=== PATIENT | male | born 1975 | race Caucasian/White ===

== ENCOUNTER 2024-09-01 02:58 | Emergency (ER) | payer MEDICAID ==
[~2024-09-01] VITALS: Ht 167.6 cm; Wt 59.7 kg
[2024-09-01 03:40] LABS: BASOPHILS # (AUTO) 0.2 X10'3 (0-0.2); BASOPHILS % (AUTO) 1.4 % (0-1); BILIRUBIN,URINE NEGATIVE (Neg); CLARITY,URINE CLEAR (Clear); COLOR,URINE YELLOW (Yellow); EOSINOPHILS # (AUTO) 0.2 X10'3 (0-0.9); GLUCOSE, URINE NEGATIVE (Neg); HEMOGLOBIN 15.3 g/dl (14.0-17.9); KETONES,URINE NEGATIVE (Neg); LEUKOCYTE ESTERASE ,URINE NEGATIVE (Neg); LYMPHOCYTES # (AUTO) 2.7 X10'3 (1.1-4.8); LYMPHOCYTES % (AUTO) 22.6 % (21-51); MEAN CORPUSCULAR HEMOGLOBIN 30.4 PG (27.0-31.0); MEAN CORPUSCULAR HGB CONC 33.3 g/dL (33.0-36.5); MEAN CORPUSCULAR VOLUME 91.5 FL (78-98); MEAN PLATELET VOLUME 7.6 FL (7.4-10.4); MONOCYTES # (AUTO) 0.9 X10'3 (0-0.9); MONOCYTES % (AUTO) 7.1 % (2-12); NEUTROPHILS % (AUTO) 66.9 % (42-75); NITRITES, URINE NEGATIVE (Neg); OCCULT BLOOD,URINE LARGE (Neg); PLATELET COUNT 324 X10'3 (140-440); PROTEIN,URINE 30 mg/dl (Neg); RED BLOOD COUNT 5.03 X10'6 (4.70-6.10); RED CELL DISTRIBUTION WIDTH 14.1 % (11.5-14.5)
[2024-09-01 03:46] LABS: UA COLLECTION TYPE URINAL
[2024-09-01 03:47] LABS: WBC,URINE 0-4 /HPF (0-4)
[2024-09-01 03:48] LABS: BACTERIA,URINE FEW /HPF (Neg); RBC,URINE TNTC /HPF (0-2); SQUAMOUS EPITHELIAL CELL,UR NONE SEEN /LPF (FEW)
[2024-09-01 03:56] LABS: ALANINE AMINOTRANSFERASE 28 U/L (12-78); ALBUMIN 4.1 G/DL (3.4-5.0); ALBUMIN/GLOBULIN RATIO 1.2 (1.1-1.5); ALKALINE PHOSPHATASE 86 IU/L (46-116); ANION GAP 12 (8-16); ASPARTATE AMINO TRANSFERASE 25 U/L (10-37); BILIRUBIN,TOTAL 0.4 MG/DL (0.1-1.0); BLOOD UREA NITROGEN 14 MG/DL (7-18); BUN/CREATININE RATIO 11.1 (10.0-20.0); CALCIUM 9.1 MG/DL (8.5-10.1); CHLORIDE 104 MMOL/L (99-107); CREATININE 1.26 MG/DL (0.60-1.10); GLUCOSE 126 MG/DL (70-104); LIPASE 20 U/L (16-77); MAGNESIUM 1.9 MG/DL (1.5-2.4); POTASSIUM 3.6 MMOL/L (3.5-5.1); SODIUM 142 MMOL/L (135-145); TOTAL CARBON DIOXIDE 25.7 MMOL/L (24-32); TOTAL PROTEIN 7.6 G/DL (6.4-8.2); eCRCL 61 ML/MIN; eGFR 61 ML/MIN
[2024-09-01] MEDS ORDERED: iohexol 300mg/ml 100ml inj. ONE (04:00)
--- NOTE | 2024-09-01 04:57 | RADIOLOGY REPORT ---
Exam: CT CT ABDOMEN PELVIS W/ IV CONTRAST History: LLQ pain COMPARISON: None Technique: Multidetector spiral CT of the abdomen and pelvis was performed from lung bases to pubic s ymphysis. Intravenous contrast was administered during this examination. Portal venous imaging was o btained. Axial, coronal and sagittal multiplanar reformats were performed by the technologist on a [employer] workstation. Radiation Dose : 1. Abdomen/Pelvis: CTDIvol 6.2 mGy, DLP 296 mGy*cm. Findings: Lung Bases: No acute or significant lung base finding. Normal heart size. No pleural or pericardial effusion. Liver: The liver is normal in size. No focal lesions. Normal hepatic vascular enhancement. Gallbladder and Biliary Tree: Unremarkable Spleen: Unremarkable Pancreas: The pancreas is normal in appearance without focal lesions or abnormal enhancement. Adrenal Glands: Unremarkable Kidneys: Mild left hydroureteronephrosis with obstructing 0.2 cm stone at the distal left ureter. R ight kidney is unremarkable. Bladder: Unremarkable Bowel: The stomach is grossly normal in appearance. Small bowel and colon are normal in caliber and d istribution. The appendix is not visualized; however, no secondary findings of acute appendicitis marnie ntified. Ascites: Absent Lymphadenopathy: No mesenteric, retroperitoneal or periportal lymphadenopathy. Abdominal Wall and Mesentery: Unremarkable. Vasculature: The visualized abdominal aorta is normal in size and caliber. Abdominal and pelvic vess els demonstrate normal enhancement. Pelvic Organs: Unremarkable Musculoskeletal: No aggressive focal bony lesions, acute fractures or dislocation. IMPRESSION: Mild left hydroureteronephrosis with obstructing 0.2 cm distal ureteral stone. Otherwise, no acute abdominal or pelvic findings. Radiation optimization: All CT scans at this facility use at least one of these dose optimization dakotah hniques: automated exposure control mA and/or kV adjustment per patient size (includes targeted exam s where dose is matched to clinical indication) or iterative reconstruction.
--- NOTE | 2024-09-01 05:24 | Physician Documentation ---
History of Present Illness Chief Complaint: Abdominal Pain Stated Complaint: ABDOMINAL PAIN Time Seen by MD: 03:25 Mode of Arrival: EMS, Ambulatory HPI 49-year-old gentleman with a known history of methamphetamine abuse presents for evaluation the left flank/left lower quadrant abdominal pain that began approximately 1 hour prior to arrival radiating to his left testicle. He reports hematuria and difficulty urinating. No particular palliating or aggravating factors. The pain is severe in its intensity. Did not attempt to treat it. This never happened in the past. No prior history of kidney stones. He also states that he is worried that he has been poison because somebody may have put borax into his methamphetamines. He does not know why would somebody do such an abomination, however he smoked a and now he feels poison. Denies chest pain, difficulty breathing, fever, chills, nausea, vomiting, diarrhea. Medication Reconciliation Allergies: Coded Allergies: No Known Allergies (Unverified , 09/01/24) Review of Systems ROS 10 point review of systems was performed and unless noted above in HPI is negative for acute process/complaint. Physical Exam Vital Signs: Temperature: 97.6, Source: Oral, Heart Rate: 87, Respiratory Rate: 18, BP: 135/87, Pulse Oximetry: 100, Weight: 59.700 Physical Exam Physical examination: GENERAL: Awake, alert, oriented, GCS 15, no apparent distress, non-toxic appearing, answers questions, follows commands appropriately. HEENT: Atraumatic, normocephalic, pupils equal, extraocular muscles intact Active gross movements, sclerae anicteric, mucus membranes moist, no stridor. NECK: Midline, no JVD CARDIOVASCULAR: Good skin perfusion without evidence of pallor, mottling. PULMONARY: Nonlabored, symmetric chest rise, no audible wheezing, no accessory muscle use, no respiratory distress, speaking in full sentences. GASTROINTESTINAL: Not distended. NEUROLOGIC: Lucid with normal mental status. Normal facial symmetry. Moves all extremities symmetrically and with purpose. No truncal ataxia. Speech is fluid without evidence of dysarthria or aphasia, no focal deficits appreciated. EXTREMITIES: Acute deformities Skin: warm, dry PSYCHIATRIC: Normal affect, normal insight, normal concentration. Focused exam: [] Progress Results/Orders Results/Orders Orders - MIKE LOUIE DO Straight Cath For Urine Sample (09/01/24 03:12) Monitor (09/01/24 03:25) Ct Abdomen Pelvis (09/01/24 04:00) Completed Orders - MIKE LOUIE DO Cbc/Diff (09/01/24 03:12) BMP (09/01/24 03:12) Lipase (09/01/24 03:12) CMP (09/01/24 03:12) MG (09/01/24 03:25) Ct Abdomen Pelvis (09/01/24 04:00) Ua W/Microscopic, Cult If Ind (09/01/24 03:31) Iohexol 300mg/Ml 100ml Inj. (Omnipaque-3 (09/01/24 04:00) Vital Signs 09/01/24 09/01/24 03:01 03:09 Temp 97.6 Pulse 87 Resp 18 18 B/P (MAP) 135/87 Pulse Ox 100 Laboratory Tests Test 09/01/24 03:31 White Blood Count 12.0 H Red Blood Count 5.03 Hemoglobin 15.3 Hematocrit 46.0 Mean Corpuscular Volume 91.5 Mean Corpuscular Hemoglobin 30.4 Mean Corpuscular Hemoglobin Concent 33.3 Red Cell Distribution Width 14.1 Platelet Count 324 Mean Platelet Volume 7.6 Neutrophils (%) (Auto) 66.9 Lymphocytes (%) (Auto) 22.6 Monocytes (%) (Auto) 7.1 Eosinophils (%) (Auto) 2.0 Basophils (%) (Auto) 1.4 H Neutrophils # (Auto) 8.0 H Lymphocytes # (Auto) 2.7 Monocytes # (Auto) 0.9 Eosinophils # (Auto) 0.2 Basophils # (Auto) 0.2 CBC Comment Urine Specimen Description Urinal Urine Color Yellow Urine Clarity Clear Urine pH 7.0 Urine Specific [place] 1.015 Urine Protein 30 H Urine Glucose (UA) Negative Urine Ketones Negative Urine Occult Blood Large H Urine Nitrite Negative Urine Bilirubin Negative Urine Urobilinogen 1.0 Urine Leukocyte Esterase Negative Urine RBC Tntc Urine WBC 0-4 Urine Squamous Epithelial Cells None seen Urine Bacteria Few Urine Culture Indicated Not ind Volume Urine Centrifuged 10 ml Urine Comment Sodium Level 142 Potassium Level 3.6 Chloride Level 104 Carbon Dioxide Level 25.7 Anion Gap 12 Blood Urea Nitrogen 14 Creatinine 1.26 H Estimated GFR/1.73 m2 61 BUN/Creatinine Ratio 11.1 Glucose Level 126 H Calcium Level 9.1 Magnesium Level 1.9 Total Bilirubin 0.4 Aspartate Amino Transf (AST/SGOT) 25 Alanine Aminotransferase (ALT/SGPT) 28 Alkaline Phosphatase 86 Total Protein 7.6 Albumin 4.1 Globulin 3.5 Albumin/Globulin Ratio 1.2 Lipase 20 Chemistry Comments Medical Decision Making Findings Facility Status: ED Holds, RME process The plan was discussed with the patient, who demonstrates clear understanding of the plan and is in agreement with the plan unless otherwise noted in the chart. All questions have been answered, all concerns were addressed unless otherwise documented. I was available throughout their ED stay for frequent reassessment and questions. Differential Diagnoses (considered and possible or likely): [Differential diagnosis considered includes pyelonephritis, kidney stone, acute appendicitis, acute cholecystitis, pancreatitis, gastritis, PUD, diverticulitis, mesenteric ischemia, abdominal aortic aneurysm, bowel obstruction, enteritis, colitis, fecal impaction, volvulus, IBS, inflammatory bowel disease, specific food i ntolerance, peritonitis, perforated viscous, malignancy, UTI, abscess, and abdominal pain NOS. History, physical exam, and workup exclude many of the more serious causes listed above. ] ??Differential Diagnoses (considered and unlikely, not requiring evaluation currently): [See above] MDM Data Please see HPI for the following: Independent Historians and external Records Review. Historian: [Patient] Independent Historians: ?[None, patient has no records] Medication Management: [Reviewed medication list] Social History and determinants: [Reviewed] Please see the body of the note for the following: Any independent interpretations of ECG, imaging studies. All vitals signs/haemodynamics, ordered tests were independently reviewed and interpreted by myself. Nursing triage complaint and vitals reviewed, additional nursing notes were reviewed as available and I agree unless otherwise noted or documented in contradiction in the chart Vital Signs: Independently reviewed Labs: Independently interpreted Imaging: Independently interpreted Old Medical Records: Independently reviewed, see HPI for relevant summary and information Pulse Oximetry: [95%] interpreted as [normal on room air] by me Additionally notably showing: [Hemodynamically stable. Laboratory workup notable for hematuria, unremarkable hematologic workup with normal renal function. Advanced imaging on my independent interpretation shows tiny stone in the distal left ureter with mild hydronephrosis. Radiology read confirms 0.2 cm stone. I] Tests considered but not ordered include: [Ultrasound has been considerably does not appear to be necessary] Social Determinants of Health Impact: Patient was evaluated in [facility], or [facility] [place] access to healthcare due to below par ratio of patient to medical providers. [] Comorbid Conditions Impacting Present Evaluation and Care/Treatment: [Methamphetamine abuse] Management Discussions with other Healthcare Providers: [None] Treatment and Disposition Medication Management (Given or considered): [Pain management]. See EMR for details Consideration for Hospitalization/Escalation/Deescalation of Care: Admission for observation has been considered, [however the patient is able to tolerate p.o., their symptoms are controlled, they are able to rely on oral medications, and their chief complaint/diagnosis can be managed on outpatient basis.] ?ED Course:?[No clinical deterioration] ?Shared decision making:?[Patient is hemodynamically stable for discharge home with follow with their primary care provider. [ ] Specific and cautious return precautions provided and discussed with full understanding. Any incidental findings were also discussed and follow up recommendations given. [] All questions answered. Patient/family were able to verbalize back return precautions. Patient/family agree to plan. Copies of imaging and laboratory studies were provided.] Code status:?FULL Please see the full Electronic Medical Record for full details of nursing documentation, medications list, other records of complete past medical history and conditions, vital signs, laboratory studies, and any radiologic study interpretations by radiologists. Portions of this note were completed using [employer] dictation software and as a result there may exist minor errors in spelling. I have reviewed elements of past family and social history and agree as included in note. Departure Disposition: 01 HOME / SELF CARE / HOMELESS Impression: Primary Impression: Renal colic on left side Condition: Improved Discharge Instructions: Kidney Stones Referrals: NO PRIMARY CARE PROVIDER (PCP) Education Educated: Patient Educated regarding: diagnosis, treatment, prognosis Signature Scribe Signature: No scribe Attestation: This note accurately reflects clinical decisions, work performed by myself, DO JACY Simmons NICHOLAS M DO Sep 01, 2024 05:24
[2024-09-01] MEDS: HYDROcodone/acetaminophen 5mg/325mg tablet PO ONE (05:38)
[2024-09-01 05:46] VITALS: BP 149/94; PULSE 86; RESP 18; TEMP 97.6; O2SAT 100
== END 2024-09-01 05:48 | disposition home or self-care (01) ==
LOC: ER 02:58
DX: N23 Unspecified renal colic (principal); F17.200 Nicotine dependence, unspecified, uncomplicated
CPT/HCPCS: 36415; 74177; 80053; 81001; 83690; 83735; 85025; 99285; Q9967; 99284

== ENCOUNTER 2024-09-03 15:26 | Emergency (ER) | payer MEDICAID ==
[~2024-09-03] VITALS: Ht 180.3 cm; Wt 65.0 kg
[2024-09-03 15:32] VITALS: TEMP 99.1
[2024-09-03 16:09] LABS: BASOPHILS # (AUTO) 0.1 X10'3 (0-0.2); BASOPHILS % (AUTO) 0.6 % (0-1); EOSINOPHILS % (AUTO) 0.1 % (0-6); HEMATOCRIT 41.6 % (42.0-52.0); HEMOGLOBIN 14.2 g/dl (14.0-17.9); LYMPHOCYTES # (AUTO) 1.2 X10'3 (1.1-4.8); MEAN CORPUSCULAR HEMOGLOBIN 30.7 PG (27.0-31.0); MEAN CORPUSCULAR HGB CONC 34.2 g/dL (33.0-36.5); MEAN CORPUSCULAR VOLUME 89.8 FL (78-98); MEAN PLATELET VOLUME 7.4 FL (7.4-10.4); MONOCYTES % (AUTO) 7.2 % (2-12); NEUTROPHILS # (AUTO) 11.3 X10'3 (1.8-7.7); NEUTROPHILS % (AUTO) 83.1 % (42-75); PLATELET COUNT 284 X10'3 (140-440); RED BLOOD COUNT 4.63 X10'6 (4.70-6.10); RED CELL DISTRIBUTION WIDTH 14.1 % (11.5-14.5); WHITE BLOOD COUNT 13.6 X10'3 (4.5-11.0)
--- NOTE | 2024-09-03 16:19 | Physician Documentation ---
History of Present Illness Chief Complaint: Abdominal Pain Stated Complaint: ABD PAIN Time Seen by MD: 16:01 HPI Patient is seen today with complaints of left lower quadrant abdominal pain that became severe today. Patient denies any changes in bowel or bladder habits. Patient does admit to illicit drug use including methamphetamines. Patient denies any chest pain or shortness of breath or abdominal pain or nausea, vomiting, diarrhea. Patient denies any blood in stool or urine. He denies any constipation. He states he has previously had kidney stones. He has no other concern or complaint at this time. Medication Reconciliation Allergies: Coded Allergies: No Known Allergies (Unverified , 09/03/24) Review of Systems Constitutional: Denies: chills, fever, weakness Eyes: Denies: pain, blurred vision ENT: Denies: ear pain, nose pain, throat pain, mouth pain Respiratory: Denies: cough, shortness of breath Cardiovascular: Denies: chest pain, palpitations Gastrointestinal: Denies: abdominal pain, nausea, vomiting Genitourinary: Denies: burning, dysuria Male Genitalia: Denies: penile discharge, testicular pain Neurological: Denies: headache, dizziness Musculoskeletal: Denies: pain, swelling Integumentary: Denies: rash, lesions Allergic/Immunologic: Denies: hives, itching Hematologic/Lymphatic: Denies: no symptoms reported Psychiatric: Denies: depression, anxiety Physical Exam Vital Signs: Temperature: 99.1, Source: Oral, Heart Rate: 82, Respiratory Rate: 19, BP: 144/84, Pulse Oximetry: 100, Weight: 65.000 Physical Exam General: Awake and Alert, no acute distress. HEENT: Patient has very poor dentition with multiple caries and dental fractures. Conjunctiva pink, Sclera clear, Mucus Membranes moist. Neck: Supple without masses and tenderness. Resp: Unlabored. Lungs clear to auscultation bilaterally. Heart: Regular Rate and rhythm, normal S1 and S2 without murmur, rub or gallop. Abdomen: Patient on exam does have some tenderness to palpation in the left lower quadrant that seems out of proportion to exam. There is no rebound tend erness. There is guarding. Patient has no CVA tenderness. Extremities: No cyanosis,clubbing or edema. Skin: Warm and Dry. Progress Results/Orders Results/Orders Vital Signs 09/03/24 15:32 Temp 99.1 Pulse 82 Resp 19 B/P (MAP) 144/84 Pulse Ox 100 Laboratory Tests Test 09/03/24 15:43 09/03/24 15:58 Urine Comment White Blood Count 13.6 H Red Blood Count 4.63 L Hemoglobin 14.2 Hematocrit 41.6 L Mean Corpuscular Volume 89.8 Mean Corpuscular Hemoglobin 30.7 Mean Corpuscular Hemoglobin Concent 34.2 Red Cell Distribution Width 14.1 Platelet Count 284 Mean Platelet Volume 7.4 Neutrophils (%) (Auto) 83.1 H Lymphocytes (%) (Auto) 9.0 L Monocytes (%) (Auto) 7.2 Eosinophils (%) (Auto) 0.1 Basophils (%) (Auto) 0.6 Neutrophils # (Auto) 11.3 H Lymphocytes # (Auto) 1.2 Monocytes # (Auto) 1.0 H Eosinophils # (Auto) 0.0 Basophils # (Auto) 0.1 CBC Comment Chemistry Comments Medical Decision Making Findings Patient is seen today with complaints of left lower quadrant abdominal pain that became severe today. Patient denies any changes in bowel or bladder habits. Patient does admit to illicit drug use including methamphetamines. Patient denies any chest pain or shortness of breath or abdominal pain or nausea, vomiting, diarrhea. Patient denies any blood in stool or urine. He denies any constipation. He states he has previously had kidney stones. He has no other concern or complaint at this time. Patient was given L of fluid, 30 mg Toradol IV, 1000 mg Tylenol IV and patient's pain has improved significantly. CT scan of abdomen showed no acute findings and was largely unremarkable. Patient will follow up with primary care in 2-5 days if no better as needed sooner. Return to ED with any worsening, concerning or changing symptoms. Prescription of ibuprofen and Tylenol sent to patient's pharmacy to be taken as prescribed. Departure Disposition: HOME / SELF CARE / HOMELESS Impression: Primary Impression: Abdominal pain Qualified Codes: R10.32 - Left lower quadrant pain Condition: Improved Discharge Instructions: Abdominal Pain (Nonspecific) Additional Instructions: Patient was given L of fluid, 30 mg Toradol IV, 1000 mg Tylenol IV and patient's pain has improved significantly. CT scan of abdomen showed no acute findings and was largely unremarkable. Patient will follow up with primary care in 2-5 days if no better as needed sooner. Return to ED with any worsening, concerning or changing symptoms. Prescription of ibuprofen and Tylenol sent to patient's pharmacy to be taken as prescribed. Referrals: NO PRIMARY CARE PROVIDER (PCP) Prescriptions Acetaminophen (Tylenol Extra Strength) 500 Mg Tablet 2 TAB PO Q6H PRN PRN for pain or fever for 7 Days, #56 TAB Prov: KWAKU MAJOR 09/03/24 Ibuprofen (Ibuprofen) 800 Mg Tablet 1 TAB PO Q8H for pain for 10 Days, #30 TAB 0 Refills Prov: KWAKU MAJOR 09/03/24 Signature Scribe Signature: No scribe Attestation: No scribe KWAKU MAJOR Sep 03, 2024 16:19
[2024-09-03 16:25] LABS: BILIRUBIN,URINE NEGATIVE (Neg); CLARITY,URINE CLEAR (Clear); COLOR,URINE YELLOW (Yellow); GLUCOSE, URINE NEGATIVE (Neg); KETONES,URINE NEGATIVE (Neg); LEUKOCYTE ESTERASE ,URINE NEGATIVE (Neg); NITRITES, URINE NEGATIVE (Neg); OCCULT BLOOD,URINE NEGATIVE (Neg); PH,URINE 8.5 (4.8-8.0); PROTEIN,URINE TRACE mg/dl (Neg); UROBILINOGEN,URINE 0.2 E.U/dL (0.2-1.0)
[2024-09-03 16:26] LABS: UA COLLECTION TYPE NON-SPECIFIED
[2024-09-03 16:27] LABS: BACTERIA,URINE FEW /HPF (Neg); MUCUS STRANDS FEW /LPF (Neg); RBC,URINE 0-2 /HPF (0-2); SQUAMOUS EPITHELIAL CELL,UR FEW /LPF (FEW); WBC,URINE 0-4 /HPF (0-4)
[2024-09-03 16:28] LABS: AMORPHOUS PHOSPHATES 1+
[2024-09-03 16:38] LABS: ALANINE AMINOTRANSFERASE 28 U/L (12-78); ALBUMIN 3.7 G/DL (3.4-5.0); ALBUMIN/GLOBULIN RATIO 1.2 (1.1-1.5); ALKALINE PHOSPHATASE 75 IU/L (46-116); ANION GAP 15 (8-16); ASPARTATE AMINO TRANSFERASE 20 U/L (10-37); BILIRUBIN,TOTAL 0.5 MG/DL (0.1-1.0); BLOOD UREA NITROGEN 11 MG/DL (7-18); BUN/CREATININE RATIO 8.6 (10.0-20.0); CALCIUM 9.1 MG/DL (8.5-10.1); CHLORIDE 101 MMOL/L (99-107); CREATININE 1.28 MG/DL (0.60-1.10); GLUCOSE 113 MG/DL (70-104); LIPASE 18 U/L (16-77); POTASSIUM 3.9 MMOL/L (3.5-5.1); SODIUM 140 MMOL/L (135-145); TOTAL CARBON DIOXIDE 23.9 MMOL/L (24-32); TOTAL PROTEIN 6.7 G/DL (6.4-8.2); eCRCL 65 ML/MIN; eGFR 60 ML/MIN
[2024-09-03] MEDS: ketorolac trometh 30MG/ML vial 30 MG/ML VIAL IV STA (16:54)
[2024-09-03] MEDS: acetaminophen 1,000mg/100ml IV 100 ML IV STA (16:55)
[2024-09-03] MEDS ORDERED: iohexol 300mg/ml 100ml inj. ONE (17:24)
--- NOTE | 2024-09-03 18:46 | RADIOLOGY REPORT ---
Exam: CT CT ABDOMEN PELVIS W/ IV CONTRAST History: abd pain Comparison Study: CT CT ABDOMEN PELVIS W/ IV CONTRAST on DOS: 09/01/24 TECHNIQUE: A digital yard foreman image was obtained. During the uneventful, intravenous administration of c ontrast material, multislice data acquisition was obtained through the abdomen and pelvis. The data s et was subsequently reconstructed into axial images. Images reviewed on a wrist examination is an exa mination of axial and multiplanar reformations using a variety of window levels and settings. RADIATION DOSE: DLP 310.11 mGy.cm; CTDI vol 6.3 mGy. Findings: Lungs: The lung bases are clear. Heart: No cardiomegaly or pericardial effusion. Liver: Unremarkable. Gallbladder: Unremarkable. Spleen: Unremarkable Pancreas: Unremarkable Adrenals: Unremarkable Kidneys: Unremarkable GI tract: Mild wall thickening of the small bowel. Normal appendix. : Unremarkable. Vasculature: Mild aortoiliac atherosclerosis. Lymphadenopathy: Absent Peritoneum: No ascites Musculoskeletal: Unremarkable Soft tissues: Small fat containing left inguinal hernia. Impression: 1. No acute abdominopelvic abnormalities. 2. Mild small bowel wall thickening. Correlate for enteritis.
[2024-09-03] MEDS: normal saline 1000ml 1,000 ML IV STA (19:13)
[2024-09-03] MEDS ORDERED: IBUP-1986 PO (19:25)
[2024-09-03] MEDS ORDERED: ACET-1025 PO (19:25)
[2024-09-03 19:42] VITALS: BP 144/84; PULSE 83; RESP 14; O2SAT 99
[2024-09-04] MEDS ORDERED: ONDA-243 PO (14:17)
[2024-09-04] MEDS ORDERED: AMOX-117 PO (14:17)
== END 2024-09-03 19:49 | disposition home or self-care (01) ==
LOC: ER 15:26
DX: R10.32 Left lower quadrant pain (principal)
CPT/HCPCS: 36415; 74177; 80053; 81001; 83605; 83690; 84145; 85025; 96361; 96374; 96375; 99285; J0131; J1885; J7030; Q9967

== ENCOUNTER 2024-09-04 13:26 | Emergency (ER) | payer MEDICAID, OTHER ==
[~2024-09-04] VITALS: Ht 175.3 cm; Wt 65.9 kg
[~2024-09-04 13:26] MED LIST: ACET-1025 PO; IBUP-1986 PO
--- NOTE | 2024-09-04 14:15 | Physician Documentation ---
History of Present Illness Chief Complaint: Abdominal Pain Stated Complaint: ABD PAIN Time Seen by MD: 14:07 Source: EMS Mode of Arrival: EMS Exam Limitations: no limitations HPI 49-year-old male brought in by EMS for continuation of abdominal pain x3 days has been into the ER. Patient still complaining of left lower quadrant pain at times radiating to the back. Patient states he has approximately one-week sober from methamphetamine. Patient states he has mild nausea no vomiting. Patient denies any constipation or diarrhea. Medication Reconciliation Allergies: Coded Allergies: No Known Allergies (Unverified , 09/04/24) Scheduled Amox Tr/Potassium Clavulanate (Augmentin 875-125 Tablet), 1 TAB PO Q12H Ibuprofen (Ibuprofen), 1 TAB PO Q8H Scheduled PRN Acetaminophen (Tylenol Extra Strength), 2 TAB PO Q6H PRN PRN for pain or fever ONDANSETRON ODT 4mg tablet (Ondansetron Odt), 1 TABLET PO Q6H PRN for nausea/vomiting Review of Systems All Other Systems at this time: Reviewed and Negative Gastrointestinal: Reports: see HPI Physical Exam Vital Signs: Temperature: 98.5, Source: Temporal, Heart Rate: 74, Respiratory Rate: 16, BP: 147/81, Pulse Oximetry: 100, Weight: 65.910 Oxygen Flow Rate: 0 General Appearance: WD/WN, no apparent distress Respiratory: lungs clear, no respiratory distress Chest: no accessory muscle use, chest non-tender Cardiovascular: regular rate, rhythm, no edema Gastrointestinal Left lower quadrant tenderness normal bowel sounds no distention no flank pain Neurologic: oriented x4 Psychiatric: anxiety Progress Results/Orders Results/Orders Vital Signs 09/04/24 14:02 Temp 98.5 Pulse 74 Resp 16 B/P (MAP) 147/81 Pulse Ox 100 O2 Flow Rate 0 Medical Decision Making Findings Discussed CT findings from previous ER visit with enteritis CT discussed colitis, gastroenteritis, diverticulitis as differentials. Mild nausea without vomiting discussed soft diet. Departure Time of Disposition: 14:15 Disposition: 01 HOME / SELF CARE / HOMELESS Impression: Primary Impression: Acute gastritis Additional Impressions: Nausea Amphetamine abuse Condition: Stable Discharge Instructions: Gastritis, Adult Additional Instructions: Rest and stay well hydrated. Take antibiotics as prescribed. Use Zofran as needed for nausea. Departure Forms: Excuse form Work or School Excused From: Work, Physical Activity Excuse beginning now through the following date: Sep 07, 2024 May Return but still avoid physical Activity from now until: Sep 07, 2024 Referrals: NO PRIMARY CARE PROVIDER (PCP) Prescriptions Amox Tr/Potassium Clavulanate (Augmentin 875-125 Tablet) 1 Each Tablet 1 TAB PO Q12H for 7 Days, #14 TAB Prov: CASIE WHEATLEY NP 09/04/24 ONDANSETRON ODT 4mg tablet (ONDANSETRON ODT) 4 Mg Tab.rapdis 1 TABLET PO Q6H PRN for nausea/vomiting, #16 TABLET Prov: CASIE WHEATLEY NP 09/04/24 Education Educated: Patient Educated regarding: diagnosis, treatment, need for follow up Signature Scribe Signature: No scribe Attestation: The note accurately reflects work and decisions made by me.Casie RICARDO 09/04/24 16:50 CASIE WHEATLEY NP Sep 04, 2024 14:15
[2024-09-04] MEDS ORDERED: AMOX-117 PO (14:17)
[2024-09-04] MEDS ORDERED: ONDA-243 PO (14:17)
[2024-09-04] MEDS: amox tr/potassium clavulanate 875/125mg TAB PO ONE (14:37)
[2024-09-04] MEDS: ondansetron 4mg rapidly disintigrating tab PO ONE (14:38)
[2024-09-04 14:53] VITALS: BP 144/82; PULSE 69; RESP 16; TEMP 98.5; O2SAT 99
== END 2024-09-04 14:51 | disposition home or self-care (01) ==
LOC: ER 13:26
DX: K29.00 Acute gastritis without bleeding (principal); F15.10 Other stimulant abuse, uncomplicated; Z79.899 Other long term (current) drug therapy
CPT/HCPCS: 99283